=== PATIENT | male | born 1985 | race Caucasian/White ===

== ENCOUNTER 2025-06-21 07:55 | Emergency (ER) | payer OTHER, SELFPAY ==
[2025-06-21 08:13] VITALS: BP 119/95; PULSE 99; RESP 18; TEMP 36.6; O2SAT 100
--- NOTE | 2025-06-21 08:37 | ED_ITS ---
HPI - Extremity Problem General Chief complaint: Extremity Problem,Nontraumatic Stated complaint: knee pain Time Seen by Provider: 06/21/25 08:45 Source: patient and RN notes reviewed Mode of arrival: ambulatory Limitations: no limitations History of Present Illness HPI Narrative: 39-year-old male presents Express Care complaining of bilateral knee pain and swelling for approximately 10 days. Patient denies any falls or injuries, he states he noticed it after he was doing squats, since then he reports pain and swelling however patient tried knee braces said sediment is knee feel tighter. Patient says the pain is relieved with ibuprofen however the pain does return, reports throbbing sensation at night. Patient denies any history of arthritis or previous knee problems. Related Data Allergies Allergy/AdvReac Type Severity Reaction Status Date / Time No Known Allergies Allergy Verified 06/21/25 08:05 Review of Systems Review of Systems: CONSTITUTIONAL: Denies fever, chills, or sweats. EYES: Denies visual changes, redness, or discharge. ENT: Denies rhinorrhea, congestion, sore throat, or otalgia. CARDIOVASCULAR: Denies chest pain, palpitations, or edema. RESPIRATORY: Denies cough or dyspnea. GASTROINTESTINAL: Denies abdominal pain, nausea, vomiting, or diarrhea. GENITOURINARY: Denies dysuria or hematuria. SKIN: Denies rash, wound, or itching. MUSCULOSKELETAL: Denies back pain, joint pain, or myalgia. Positive for knee pain and swelling NEUROLOGIC: Denies headache, numbness, or weakness. PSYCHIATRIC: Denies anxiety or depression. All other systems reviewed are negative, except as documented in HPI. PMFSH Comments At the time of my signature, I reviewed and agree with the nursing past medical, surgical, social, and family history. There is no relevant family history pertinent to the patient complaint. Exam Narrative: GENERAL: This is a well-nourished, well-developed adult, in no apparent distress. They are non ill-appearing, nontoxic appearing. HEAD: normocephalic, atraumatic. EYES: Sclera clear/white. Vision is grossly intact. Conjunctiva normal. Ex traocular movement intact. EARS: External ears normal Hearing grossly intact. NOSE: External nose normal THROAT: Mucous membranes moist NECK: Neck supple CARDIOVASCULAR: Regular rate and rhythm RESPIRATORY: Respiratory rate normal, respiratory effort nonlabored, no respiratory distress NEURO: awake, alert, and oriented to person, place and time. There were no obvious focal neurologic abnormalities. EXTREMITIES: Bilateral knees: No obvious deformity, injury, bruising, redness. Knee with mild swelling. There is pain through full range of motion primarily with knee extension. No bony tenderness. Capillary refill less than 3 seconds. Bilateral poplitea Pulses 2 +palpable. Normal sensation. Neurovascular status intact distal injury. No valgus or varus laxity. Negative anterior drawer test. BACK: Nontender without deformity. Course Course Emergency Course: Portions of this record may have been created with voice recognition software Level of Care: Express Care Visit Vital Signs Vital signs: Vital Signs Temperature 97.9 F 06/21/25 08:13 Pulse Rate 99 06/21/25 08:13 Respiratory Rate 18 06/21/25 08:13 Blood Pressure 119/95 H 06/21/25 08:13 Pulse Oximetry 100 06/21/25 08:13 Oxygen Delivery Room Air 06/21/25 08:13 Temperature 97.9 F 06/21/25 08:13 Pulse Rate 99 06/21/25 08:13 Respiratory Rate 18 06/21/25 08:13 Blood Pressure 119/95 H 06/21/25 08:13 Pulse Oximetry 100 06/21/25 08:13 Oxygen Delivery Room Air 06/21/25 08:13 Reviewed MDM - Extremity (Nontraumatic) MDM Narrative Medical decision making narrative: No evidence of injury. No bony tenderness. Could be arthritis or musculoskeletal injury, offered imaging morning to further assess legs, patient would like to try conservative management prior to any imaging. Will send a prescription of prednisone. Discussed rice therapy. Discussed physical exam findings. Advised supportive measures and signs/symptoms to go to the ER. Pt is appropriate for outpt treatment and f/u. Differential Diagnosis Differential diagnosis: Likely other (Knee sprain, arthritis, bursitis) Critical Care Time Critical Care Time Critical Care Time: No Discharge Plan Discharge Clinical Impression: Pain and swelling of knee Patient Disposition: Home Condition: Stable Instructions: Swollen Knee Joint (ED) Additional Instructions: Take the prednisone as directed. Rest and elevate the leg; bear weight as tolerated Apply ice 15-20 minute intervals several times a day Keep it wrapped with TOVA or use a knee brace You may take ibuprofen 600 mg to 800 mg every 6-8 hours. Do not exceed more than 800 mg of ibuprofen per dose. Do not exceed more than 3200 mg ibuprofen in a day. You may take up to 1000 mg Tylenol every 6-8 hours. Do not exceed 1000 mg per dose, do exceed more than 4000 mg of Tylenol in a day. Follow up with your primary care provider or orthopedist needed in 1-2 weeks especially if pain persist after 10 days. Patient Language: Kenyan Prescriptions: New prednisone 20 mg tablet 40 mg PO DAILY 5 Days Qty: 10 0RF Follow-up/Referrals: Silvana Fitzpatrick DO [Physician, Family Practice] - 3 Days Referral Note: To get established Nathaniel Hart MD [Physician, Orthopedics] - 2 Weeks Referral Note: If knee pain persist. UNKNOWN,DOCTOR [Primary Care Provider] Time of Disposition: 08:36
== END 2025-06-21 08:38 | disposition home or self-care (01) ==
DX: M25.562 Pain in left knee (principal); M25.561 Pain in right knee; M25.462 Effusion, left knee; M25.461 Effusion, right knee
CPT/HCPCS: 99203; G0463

== ENCOUNTER 2025-07-03 14:36 | Outpatient (CLI) | payer OTHER, SELFPAY ==
--- NOTE | ~2025-07-03 | XR_ITS ---
EXAMINATION: [id number], 07/03/2025 14:49 CDT HISTORY: Knee pain COMPARISON: No comparisons available. Findings: No acute fracture or malalignment. No significant degenerative changes. Soft tissues unremarkable. Impression: No acute fracture or malalignment. Reviewed, dictated and finalized at location P. Impression: No acute fracture or malalignment.
== END 2025-07-03 14:37 | disposition home or self-care (01) ==
PROVIDERS: PCP Emergency Medicine; Visit Provider Emergency Medicine
DX: M25.561 Pain in right knee (principal); M25.562 Pain in left knee
CPT/HCPCS: 73560